=== PATIENT | female | born 1935 | race Caucasian/White ===

== ENCOUNTER 2024-07-03 18:18 | Emergency (ER) | payer MEDICARE ==
[~2024-07-03] VITALS: Ht 160 cm; Wt 64.5 kg
[2024-07-03 18:27] VITALS: BP 136/92; TEMP 99.3; O2SAT 98
[2024-07-03] MEDS ORDERED: BUSP5TA (18:36)
[2024-07-03] MEDS ORDERED: HYDR-643 PO (22:11)
== END 2024-07-03 22:32 | disposition home or self-care (01) ==
LOC: M ED 18:18
DX: F41.9 Anxiety disorder, unspecified (principal); Z79.899 Other long term (current) drug therapy

== ENCOUNTER → 2024-07-09 | Outpatient (REF) ==
[~2024-07-09] MED LIST: BUSP5TA; HYDR-643 PO
== END ==
LOC: M LAB REF 16:55
DX: N39.0 Urinary tract infection, site not specified (principal)

== ENCOUNTER 2025-01-15 00:54 | Emergency (ER) | payer MEDICARE ==
[~2025-01-15] VITALS: Ht 160 cm; Wt 70.9 kg
[2025-01-15] MEDS ORDERED: LEXA1TAB PO (06:03)
[2025-01-15] MEDS ORDERED: PANT20TA6 PO (06:03)
[2025-01-15] MEDS ORDERED: BUSP10TA PO (06:03)
[2025-01-15] MEDS ORDERED: ACETAMINOPHEN 325 MG TAB PO PRN (06:35)
[2025-01-15] MEDS ORDERED: MAALOX 30 ML SUSP *UDC PO PRN (06:35)
[2025-01-15] MEDS ORDERED: ASHW62.5 PO (06:39)
[2025-01-15] MEDS ORDERED: COLA100C5 PO (06:39)
[2025-01-15] MEDS ORDERED: LIDO1ADH93 TOP (06:39)
[2025-01-15] MEDS ORDERED: THERTAB52 PO (06:39)
[2025-01-15] MEDS ORDERED: HOME MED LIST COMPLETE! XX SCH (06:45)
[2025-01-15 07:11] LABS: PLATELET COUNT, AUTOMATED 186 10^3/uL (150-450)
[2025-01-15 07:31] LABS: ALT/SGPT < 9 U/L (7.0-40); AST/SGOT 15 U/L (<34); CALCIUM LEVEL 8.9 MG/DL (8.3-10.6); CARBON DIOXIDE LEVEL 27 MMOL/L (20-31); CHLORIDE LEVEL 107 MMOL/L (98-107); CREATININE FOR GFR 0.97 MG/DL (0.55-1.30); GLOMERULAR FILTRATION RATE 56.2 (>32); POTASSIUM SERUM 4.0 MMOL/L (3.5-5.1); SODIUM LEVEL 144 MMOL/L (136-145)
[2025-01-15 08:39] LABS: IRON (FE) 10 UG/DL (50-170); PERCENT SATURATION 4.5 % (13.2-45.0)
[2025-01-15 08:41] LABS: VITAMIN B12 LEVEL 627 PG/ML (211-911)
[2025-01-15] MEDS: ESCITALOPRAM OXALATE 10 MG TABLET PO SCH (09:12)
[2025-01-15] MEDS: LOSARTAN 25 MG TAB PO SCH (09:12)
[2025-01-15] MEDS: ENOXAPARIN 40 MG/0.4 ML SYRINGE (J1650 PER 10MG) SC SCH (09:13)
[2025-01-15] MEDS: PANTOPRAZOLE 20 MG TAB PO SCH (09:49)
[2025-01-15 14:30] VITALS: BP 141/64; TEMP 98.3; O2SAT 97
== END 2025-01-15 14:34 | disposition home or self-care (01) ==
LOC: M ED 00:54
DX: M25.561 Pain in right knee (principal); R26.2 Difficulty in walking, not elsewhere classified; E78.5 Hyperlipidemia, unspecified; N18.9 Chronic kidney disease, unspecified; F41.1 Generalized anxiety disorder; F32.9 Major depressive disorder, single episode, unspecified; K58.9 Irritable bowel syndrome, unspecified; K21.9 Gastro-esophageal reflux disease without esophagitis; Z86.79 Personal history of other diseases of the circulatory system; Z88.8 Allergy status to other drugs, medicaments and biological substances; Z88.5 Allergy status to narcotic agent; Z79.899 Other long term (current) drug therapy
CPT/HCPCS: 36415; 80053; 82607; 82728; 82746; 83550; 85027; 99285; J1650